=== PATIENT | male | born 1940 | race Caucasian/White ===

== ENCOUNTER → 2025-02-13 08:52 | Outpatient (REF) | payer OTHER, SELFPAY | LOC: HWRAD 08:52 | PROVIDERS: ATTENDING PHYSICIAN Physician Assistant; FAMILY PHYSICIAN Internal Medicine | DX: S42.91XK Fracture of right shoulder girdle, part unspecified, subsequent encounter for fracture with nonunion (principal); M25.511 Pain in right shoulder; S42.291A Other displaced fracture of upper end of right humerus, initial encounter for closed fracture | CPT/HCPCS: 73200 ==